=== PATIENT | male | born 1965 | race Asian ===

== ENCOUNTER 2020-02-05 11:50 | Emergency (ER) | payer SELFPAY ==
[~2020-02-05] VITALS: Ht 170.2 cm; Wt 63.5 kg
--- NOTE | 2020-02-05 12:03 | NUR ---
PT TO ER BED 02 C/O SORE THROAT. PAIN WHEN SWALLOWING X 1 WEEK. PT STATES TOOK KEFLEX FOR 2 DAYS LAST WEEK NOT PRESCRIBED TO HIM W/ MINIMAL REFIEF. PT DENIES COUGH AND CONGESTION. AFREBRILE. VSS. AWAITING MD HOFFMANN.
--- NOTE | 2020-02-05 12:07 | NUR ---
DR MEHTA AT BEDSIDE FOR EVAL.
[2020-02-05] MEDS ORDERED: methylPREDNISolone SOD SUCC 125 MG/2ML VIAL ONE (12:11)
[2020-02-05] MEDS ORDERED: CEFTRIAXONE 1GM BAG (ER ONLY) 50 ML IV ONE ×2 (12:11→12:30)
[2020-02-05] MEDS ORDERED: IV NS 0.9% 1,000 ML BAG IV ONE (12:30)
[2020-02-05] MEDS ORDERED: methylPREDNISolone SOD SUCC 125 MG/2ML VIAL IV ONE (12:30)
[2020-02-05 12:31] LABS: BASOPHILS # (AUTO) 0.2 /CMM (0.0-0.2); BASOPHILS % (AUTO) 1.2 % (0.0-2.0); EOSINOPHILS % (AUTO) 0.1 % (0.0-6.0); HEMATOCRIT 39 % (39-51); HEMOGLOBIN 12.9 g/dL (13.5-17.5); LYMPHOCYTES % (AUTO) 6.7 % (20.0-44.0); MEAN CORPUSCULAR HGB CONC 33 g/dl (31.0-36.0); MEAN CORPUSCULAR VOLUME 91 fL (80-96); MONOCYTES # (AUTO) 0.8 /CMM (0.1-1.30); MONOCYTES % (AUTO) 5.9 % (2.0-12.0); NEUTROPHILS # (AUTO) 12.2 /CMM (1.8-8.9); NEUTROPHILS % (AUTO) 86.1 % (43.0-81.0); PLATELET COUNT (AUTO) 317 /CMM (150-450); RED BLOOD CELL COUNT(AUTO) 4.27 MIL/uL (4.5-6.0); WHITE BLOOD COUNT (AUTO) 14.2 K/uL (4.3-11.0)
[2020-02-05 12:40] LABS: CALCIUM, SERUM 9.3 mg/dL (8.5-10.1); CREATININE 0.9 mg/dL (0.6-1.3); POTASSIUM 3.8 mmol/L (3.5-5.1)
--- NOTE | 2020-02-05 13:03 | NUR ---
PT TO RADIOLOGY FOR NECK CT SCAN VIA WHEELCHAIR.
[2020-02-05] MEDS ORDERED: CT SWABBABLE VALVE TRANS SET 1 EA INFUS.SET MC ONE (13:06)
[2020-02-05] MEDS ORDERED: IOHEXOL-300 100 ML VIAL IV ONE (13:06)
[2020-02-05] MEDS ORDERED: IV NS 0.9% 250 ML IV ONE (13:06)
--- NOTE | 2020-02-05 13:58 | NUR ---
Patient discharged to home in stable condition. Written and verbal after care instructions given. Patient verbalizes understanding of instruction.IV removed. Catheter intact and site benign. Pressure and 4x4 applied to site. No bleeding noted.
[2020-02-05 14:00] VITALS: BP 125/77
== END 2020-02-05 14:01 | disposition home or self-care (01) ==
LOC: ER 11:50
DX: J36 Peritonsillar abscess (principal)
CPT/HCPCS: 36415; 70491; 80048; 85025; 96365; 96375; 99285; J0696; J2930; J7030; J7050; Q9967